=== PATIENT | female | born 1975 | race Caucasian/White ===

== ENCOUNTER 2023-03-12 20:41 | Emergency (ER) | payer SELFPAY ==
[~2023-03-12] VITALS: Ht 162.6 cm; Wt 58.0 kg
[2023-03-12 20:59] VITALS: BP 100/60; TEMP 97.8; O2SAT 97
[2023-03-12 21:01] VITALS: PULSE 96; RESP 16
[2023-03-12] MEDS ORDERED: BACITRACIN ZINC OINT UDPKT TOP ONE (23:30)
[2023-03-12] MEDS ORDERED: TETANUS, DIPHTHERIA, PERTUSSIS VAC/PF 0.5ML (>10YR OLD) IM ONE ×2 (23:30→23:45)
[2023-03-12] MEDS ORDERED: BACITRACIN ZINC OINT UDPKT TOP NR (23:45)
[2023-03-13] MEDS ORDERED: CEPH500T MT (00:45)
[2023-03-13] MEDS ORDERED: SULF1TAB48 MT (00:45)
[2023-03-13] MEDS ORDERED: BO1 TP (00:45)
== END 2023-03-13 00:57 | disposition home or self-care (01) ==
LOC: ER 20:41
DX: L02.212 Cutaneous abscess of back [any part, except buttock and flank] (principal); Z98.890 Other specified postprocedural states
CPT/HCPCS: 81025; 90715; 96372; 99283